=== PATIENT | male | born 1965 | race Caucasian/White ===

== ENCOUNTER 2023-05-17 11:24 | Emergency (ER) | payer MEDICAID, SELFPAY ==
[2023-05-17 11:32] VITALS: BP 158/89; PULSE 79; RESP 18; TEMP 36.9; O2SAT 94; BMI 29.0
--- NOTE | 2023-05-17 11:37 | ED_ITS ---
HPI - General Adult General Chief complaint: General Medical Stated complaint: Lump on ride neck-painful Time Seen by Provider: 05/17/23 12:49 Source: patient and it instructor Mode of arrival: ambulatory Limitations: language barrier History of Present Illness HPI narrative: 58 yo male with history of DM, HTN, HLD, former smoker here with complaints of subjective fevers, cough, sore throat, and right sided facial swelling x 2 days. NO difficulty swallowing/diff breathing/chest pain/sob/skin rash/neck pain or neck stiffness. NO recent travel or sick contact. Related Data Previous Rx's Medication Instructions Recorded amoxicillin 875 mg-potassium 1 tab PO BID #14 tabs 05/17/23 clavulanate 125 mg tablet Allergies Allergy/AdvReac Type Severity Reaction Status Date / Time No Known Allergies Allergy Verified 05/17/23 11:31 Review of Systems 2 Review of Systems: Yes all other systems are reviewed and are negative Constitutional: Constitutional: Reports no additional constitutional complaints, Denies body ache(s), Denies chills, Reports fever(s), Denies headache(s) and Denies weakness Eyes: Eyes: Reports no additional eye complaints and Denies change in vision ENT: Reports system reviewed and no additional complaints, except as documented, Denies dizziness, Denies headache(s), Denies nasal congestion, Denies nasal discharge, Denies neck pain and Reports sore throat Cardiovascular: Cardiovascular: Reports no additional cardiovascular complaints, Denies chest pain, Denies leg edema and Denies dyspnea Respiratory: Respiratory: Reports no additional respiratory complaints, Reports cough and Denies dyspnea Gastrointestinal: Gastrointestinal: Reports no additional gastrointestinal complaints, Denies abdominal pain, Denies diarrhea, Denies nausea and Denies vomiting Genitourinary: Genitourinary: Denies urinary incontinence Musculoskeletal: Musculoskeletal: Reports no additional musculoskeletal complaints, Denies back pain, Denies arthralgias, Denies joint swelling, Denies neck pain, Denies numbness and Denies tingling Integumentary/Breasts: Skin/Breast: Reports system reviewed and no additional complaints, except as docu and Denies rash Neurologic: Reports system reviewed and no additional complaints, except as documented, Denies Abnormal speech present, Denies dizziness, Denies headache(s), Denies numbness, Denies tingling and Denies weakness [facility] Past Medical History Attestation statement: The following information was validated with the patient. Source: old records reviewed and nursing notes reviewed Social History Social History Advance Directives: No Advance Directives Information Provided: Yes Physical Exam ED Vital Signs: Vital Signs - 24 hr 05/17/23 11:32 Temperature 98.5 F Pulse Rate 79 Respiratory Rate 18 Blood Pressure 158/89 H Pulse Oximetry 94 Oxygen Delivery Method Room Air BMI result Body Mass Index 29.0 Const General: cooperative, healthy appearing, comfortable and no acute distress Orientation/consciousness: patient oriented x3 Limitations: no limitations HENMT Head: Yes normal to inspection Ears: hearing grossly normal bilaterally and TM's normal bilaterally General nose exam: Normal external nose present Face and sinus: Yes normal facial exam Face images: 2 1. +single lymph jjzb-rfpsqufyargvi-toll tenderness, mobile Mouth: Normal oral and palatal mucosa present Throat: Yes posterior oropharynx normal, Yes tonsils normal and Yes uvula midline Eyes General: appearance normal, both eyes and all related structures Pupils: Equal, round and reactive pupils present Neck Neck: Yes normal visual inspection, Yes full ROM and Yes no meningeal signs Chest Chest palpation & inspection: normal inspection of the chest Resp Effort & Inspection: normal respiratory effort Auscultation: clear to auscultation bilaterally Cardio Rate: regular rate Rhythm: regular rhythm Peripheral pulses: Peripheral pulses 2+ throughout GI Inspection: Yes normal to inspection Palpation (GI): Soft to palpation and nontender Auscultation: normal bowel sounds Back/Spine/Pelvis Thoracic/Lumbar Spine: thoracic and lumbar spine normal to inspection Skin General skin exam: no rashes or lesions noted Neuro General: patient oriented x3, no meningeal signs, no focal motor deficits and normal sensation to monofilament Cranial nerves: Yes Equal, round and reactive pupils present Cognition (Neuro): normal cognition Speech: No Abnormal speech present Gait exam (Neuro): Normal gait present Motor exam (neuro): 5/5 motor strength present throughout Extrem General: Yes normal to inspection Course Course Course Narrative: RME: 58 [facility], and slight lump on right neck for the past 3 days. patient states no drooling, choking, dental pain, nausea, vomitting, night sweats, or weight loss. physical exam negative for obvious swelling of face or neck. positive for slight right tender lymphadenopathy. covid, influenza, and strep ordered. Reevaluation(s) Reevaluation #1: Viral testing and strep testing are negative. Patient does have some lymphadenopathy so will treat him with a course of antibiotics. I did recommend due to his smoking history that he follow-up with his primary care doctor closely if he has any continued lymphadenopathy he may need advanced imaging and/or lymph node biopsy. Reviewed worrisome signs and symptoms of when to return to the emergency room. Comfortable plan for discharge home. Medical Decision Making Medical Decision Making [facility] Narrative: 58 yo male with history of DM, HTN, HLD, former smoker here with complaints of subjective fevers, cough, sore throat, and right sided facial swelling x 2 days. NO difficulty swallowing/diff breathing/chest pain/sob/skin rash/neck pain or neck stiffness. NO recent travel or sick contact. On exam patient with single lymph node palpated-submandibular right. Exam otherwise benign. Will send testing for strep, flu/covid/rsv Differential Diagnosis Differential Diagnoses: The differential diagnosis associated with the presentation includes lymphadenopathy viral syndrome strep pharyngitis Not c/w with ludwigs angina, DAY CARE SUPERVISOR/RPA, parotitis low suspicion of malignancy with acute onset Admission/Observation Consideration of admission/observation: Escalation of care including admission/observation considered low concern for differential above requiring advanced imaging, urgent ENT consultation and or admission Lab Data [facility] Lab Attestation statement: I reviewed the patient's lab results. Labs: Lab Results 05/17/23 Range/Units 12:53 Influenza Type A (PCR) NEGATIVE (Negative) Influenza Type B (PCR) NEGATIVE (Negative) RSV RNA Qual (PCR) NEGATIVE (Negative) SARS-CoV-2 RNA (RT-PCR) NEGATIVE (Negative) S. pyogenes GrpA NONA Negative (Negative) Tests considered The following testing was considered but not selected: low concern for differential above requiring advanced imaging Prescription Management I considered prescription management with: Antibiotic Discharge Plan Discharge Clinical Impression: Lymphadenopathy Patient Disposition: Home, Self-Care Instructions: Lymphadenopathy (ED) Additional Instructions: Your testing for flu, covid, rsv are negative Your testing for strep and negative You have a swollen lymph node and we are starting you on an antibiotic. If this does not improve with antibiotics you may need advanced imaging and/or biopsy. It is very important that you follow up with your doctor in regards to this. Keshia galindo de gripe, covid y rsv son negativas Tus pruebas de estreptococos y negativas Tiene un ganglio linf?ioana inflamado y le estamos iniciando un tratamiento con antibi?ticos. Si esto no mejora con antibi?ticos, es posible que necesite im?genes avanzadas y/o abdias biopsia. Es muy importante que veronica un seguimiento con branch m?dico al respecto. Prescriptions: New amoxicillin-pot clavulanate 875-125 mg tablet 1 tab PO BID Qty: 14 0RF Referrals: Physician,Unknown J [Primary Care Provider] - 1 week Discharge Date/Time: 05/17/23 14:59 Print Language: Malay
[2023-05-17 13:13] LABS: IDNOW Serial# 08D9AD1C; Strep A Nucleic Acid Negative (Negative)
[2023-05-17 13:37] LABS: Influenza A PCR NEGATIVE (Negative); Influenza B PCR NEGATIVE (Negative); Resp Syncy Virus RNA Qual PCR NEGATIVE (Negative); SARS COV2 PCR INHOUSE NEGATIVE (Negative)
== END 2023-05-17 14:59 | disposition home or self-care (01) ==
PROVIDERS: Nurse Practitioner Family; Physician Assistant; Emergency Provider Emergency Medicine
DX: R59.1 Generalized enlarged lymph nodes (principal); R50.9 Fever, unspecified; R05.9 Cough, unspecified; J02.9 Acute pharyngitis, unspecified; I10 Essential (primary) hypertension; E11.9 Type 2 diabetes mellitus without complications; E78.5 Hyperlipidemia, unspecified; Z20.822 Contact with and (suspected) exposure to COVID-19; Z20.828 Contact with and (suspected) exposure to other viral communicable diseases
CPT/HCPCS: 0241U; 87651; 99283

== ENCOUNTER 2023-07-26 13:18 | Emergency (ER) | payer MEDICAID, SELFPAY ==
[2023-07-26 13:49] VITALS: BP 126/76; PULSE 88; RESP 18; TEMP 36.4; O2SAT 95; BMI 32.3
--- NOTE | 2023-07-26 13:59 | ED.GENADULT ---
HPI - General Adult General Chief complaint: Extremity Injury, Lower Stated complaint: Toe pain L foot Time Seen by Provider: 07/26/23 13:59 Source: patient Mode of arrival: ambulatory Limitations: no limitations History of Present Illness HPI narrative: 58 yold male with pmh of DM and left plantar fascitis presents to the ED for left heel pain for 1 weeks. Patient usually gets corticosteroid injections in the left heel pain but it has been awhile. Patient denies any new trauma, redness, swelling, bluish black discoloration, open open wounds, pus discharge, foul odor, fever, chills, hotness, coldness, or any calf pain. Related Data Previous Rx's Medication Instructions Recorded amoxicillin 875 mg-potassium 1 tab PO BID #14 tabs 05/17/23 clavulanate 125 mg tablet ketorolac 10 mg tablet 10 mg PO Q6H PRN pain 5 days #20 07/26/23 tabs prednisone 20 mg tablet 60 mg (3 x 20 mg) PO DAILY 5 days 07/26/23 #15 tabs Allergies Allergy/AdvReac Type Severity Reaction Status Date / Time No Known Allergies Allergy Verified 07/26/23 13:49 Review of Systems Review of Systems: Left heel pain Yes all other systems are reviewed and are negative [facility] Social History Social History Advance Directives: No Advance Directives Information Provided: Yes Physical Exam ED Vital Signs: Vital Signs - 24 hr 07/26/23 13:49 Temperature 97.5 F Pulse Rate 88 Respiratory Rate 18 Blood Pressure 126/76 Pulse Oximetry 95 Oxygen Delivery Method Room Air BMI result Body Mass Index 32.3 Const General: cooperative, healthy appearing, comfortable, no acute distress, well developed, alert, awake and Physically active Orientation/consciousness: oriented to person, oriented to place, oriented to time and patient oriented x3 HENMT Head: Yes normal to inspection, Yes No palpable skull fracture present, Yes normocephalic, Yes atraumatic and No abrasion Ears: hearing grossly normal bilaterally, external ears normal, TM's normal bilaterally, TM normal on the right and TM normal on the left Throat: Yes posterior oropharynx normal, Yes tonsils normal and Yes uvula midline Eyes General: appearance normal, both eyes and all related structures Neck Neck: Yes normal visual inspection, Yes full ROM, Yes no lymphadenopathy, Yes no meningeal signs, Yes trachea midline, Yes supple, No anterior neck swelling and No tender Chest Chest palpation & inspection: normal inspection of the chest and normal palpation of entire chest wall Resp Effort & Inspection: normal respiratory effort and able to speak in complete sentences Auscultation: clear to auscultation bilaterally Cardio Jugular venous distension: no JVD Heart sounds: S1 normal heart sound present and S2 normal heart sound present GI Inspection: Yes normal to inspection Palpation (GI): Soft to palpation, not firm, nontender and no guarding General: No CVA tenderness and Yes no CVA tenderness Back/Spine/Pelvis Back: no CVA tenderness, No CVA tenderness and No back tenderness Skin General skin exam: no rashes or lesions noted, elasticity normal and turgor normal Neuro General: oriented to person, oriented to place, oriented to time, patient oriented x3, gait normal, tone normal, moves all extremities, Normal light touch and pain sensation, no meningeal signs, no focal motor deficits, CN's II-XI intact bilaterally and normal sensation to monofilament Extrem General: Yes normal to inspection and Yes full ROM Ankle/foot/toe images: 1. tenderness on palpation. Negative for any erythema, swelling, open wounds, pus discharge, foul odor, calf pain, bluish black discoloration, or crepitus. Motor/neuro/ vascular exam intact of whole extremity. Negative for calf pain Psych Appearance: grossly normal, well kempt and not disheveled Course Course Course Narrative: RME: 58 yold male with pmh of DM and plantar fascitits presents to the ED for left heel pain. Patient usually gets Cordis steroid injection to his foot for plantar fasciitis. Patient denies any trauma to the foot, swelling, redness, pus discharge, foul odor. Medications Administered Discontinued Medications Generic Name Dose Route Start Last Admin Trade Name Freq PRN Reason Stop Dose Admin Ketorolac Tromethamine 30 mg 07/26/23 13:59 07/26/23 14:08 Ketorolac Tromethamine 30 Mg/Ml Vial IM 07/26/23 14:00 30 mg ONCE ONE Administration Medical Decision Making Medical Decision Making [facility] Narrative: 58-year-old male history of diabetes and left plantar fasciitis presents to ED for left heel pain for one week. no need for any imaging. Patient denies any new trauma. Physical exam and history does not indicate DVT, cellulitis, compartment syndrome, arterial occlusion, diabetic foot, fracture, or arterial occlusion. History physical exam indicate plantar fasciitis. Discharged with pain meds and steroids Differential Diagnosis Differential Diagnoses: The differential diagnosis associated with the presentation includes ( plantar fasciitis, heel s) Admission/Observation Consideration of admission/observation: Escalation of care including admission/observation considered Independent Historian Clinical information obtained from an independent historian. History obtained from or confirmed by: Other ( patient) External Record Review External record reviewed: Other ( prior visit) Prescription Management I considered prescription management with: Pain Medication Discharge Plan Discharge Clinical Impression: Plantar fasciitis of left foot Patient Disposition: Home, Self-Care Instructions: Plantar Fasciitis (ED), Plantar Fasciitis Exercises (ED) Additional Instructions: Recomiende un seguimiento con branch proveedor de atenci?n primaria para abdias reevaluaci?n de la fascitis plantar y turner si necesita abdias inyecci?n de corticosteroides en el pie. Regrese al servicio de urgencias inmediatamente si presenta hinchaz?n, enrojecimiento, heridas abiertas, secreci?n de pus, mal olor, dolor en la pantorrilla, dolor en el pecho, dificultad para respirar, decoloraci?n anna azulada, calor en las extremidades, fr?o, par?lisis, debilidad, entumecimiento, hormigueo o cualquier otros s?ntomas preocupantes. Recommend follow-up with your primary care provider for re-evaluation of the plantar fasciitis to see if you need a corticosteroid injection to your foot. Return to the ED immediately for any swelling, redness, open wounds, pus discharge, foul odor, calf pain, chest pain, shortness of breath, bluish black discoloration, hotness of extremity, coldness, paralysis, weakness, numbness, tingling, or any other concerning symptoms. Prescriptions: New prednisone 20 mg tablet 60 mg PO DAILY 5 Days Qty: 15 0RF ketorolac 10 mg tablet 10 mg PO Q6H PRN (Reason: pain) 5 Days Qty: 20 0RF Rx Instructions: received 30gm IM toradol in the ED. No Action amoxicillin-pot clavulanate 875-125 mg tablet 1 tab PO BID Qty: 14 0RF Interventions: ED Discharge Assessment Last Done: 07/26/23 14:11 Discharge Date/Time: 07/26/23 14:15 Print Language: Bulgarian
[2023-07-26] MEDS: Ketorolac Tromethamine 30 MG/ML VIAL IM (14:08)
--- NOTE | 2023-07-26 14:11 | PC.NURSE ---
pt medicated per MAJO, left deltoid, tolerated well.
== END 2023-07-26 14:15 | disposition home or self-care (01) ==
PROVIDERS: Emergency Provider Emergency Medicine Emergency Medical Services
DX: M72.2 Plantar fascial fibromatosis (principal); M79.672 Pain in left foot; E11.9 Type 2 diabetes mellitus without complications
CPT/HCPCS: 96372; 99283; 99284; J1885

== ENCOUNTER 2023-08-26 16:47 | Emergency (ER) | payer MEDICARE, MEDICAID, SELFPAY ==
--- NOTE | ~2023-08-26 | XR_ITS ---
EXAMINATION: XR FOOT, LEFT CLINICAL INFORMATION: Foot pain. Heel pain. COMPARISON: None available. TECHNIQUE: AP, lateral, and oblique views of the left foot. FINDINGS: Status post amputation of the great toe through the distal shaft of the proximal phalange. No acute osseous abnormality. No fracture. No dislocation. No bone destruction or abnormal periosteal reaction. Mild joint narrowing DIP joints of the toes. No plantar calcaneal heel spur. XR/XR foot LT min 3V IMPRESSION: 1. Status post amputation of the great toe. 2. No acute osseous abnormality. 3. No plantar calcaneal heel spur.
[2023-08-26 17:05] VITALS: BP 100/64; PULSE 93; RESP 16; TEMP 36.6; O2SAT 98; BMI 31.6
--- NOTE | 2023-08-26 17:07 | ED_ITS ---
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 He reports that he has a diabetic with denies any trauma or injury. The patient has a remote history of a left great toe amputation in [place] due to an infection He was seen here 1 month ago for similar pain to the bottom of his left foot. He reports he was diagnosed with plantar fasciitis Denies any fevers, chills, redness, swelling His pain is worse with attempting to ambulate Related Data Previous Rx's Medication Instructions Recorded amoxicillin 875 mg-potassium 1 tab PO BID #14 tabs 05/17/23 clavulanate 125 mg tablet ketorolac 10 mg tablet 10 mg PO Q6H PRN pain 5 days #20 07/26/23 tabs prednisone 20 mg tablet 60 mg (3 x 20 mg) PO DAILY 5 days 07/26/23 #15 tabs tramadol 50 mg tablet 50 mg PO TID PRN severe pain 08/26/23 (scale score 7-10) #15 tabs Allergies Allergy/AdvReac Type Severity Reaction Status Date / Time No Known Allergies Allergy Verified 07/26/23 13:49 Review of Systems Constitutional: Constitutional: Denies chills and Denies fever(s) Musculoskeletal: Musculoskeletal: Reports arthralgias Integumentary/Breasts: Skin/Breast: Denies erythema and Denies wounds PMFSH Social History Social History Advance Directives: No Advance Directives Information Provided: No Physical Exam Vital Signs: Vital Signs: Last Vital Signs Temp 97.6 F 08/26/23 23:16 Pulse 88 08/26/23 23:16 Resp 16 08/26/23 23:16 BP 116/74 08/26/23 23:16 Pulse Ox 96 08/26/23 23:16 O2 Del Method Room Air 08/26/23 23:16 BMI result Body Mass Index 31.6 Const: General: healthy appearing, comfortable, no acute distress, alert and awake Nutritional Appearance: well nourished Orientation/consciousness: patient oriented x3 HEENT: Head: Yes normocephalic and Yes atraumatic Eyes: Eyelids: Yes eyelids normal Conjunctivae: conjunctivae normal Sclerae: sclerae normal Corneas: corneas normal Pupils: Equal, round and reactive pupils present EOM: EOMs intact bilaterally Resp: Effort & Inspection: normal respiratory effort, able to speak in complete sentences and not labored GI: Inspection: No distended Palpation (GI): Soft to palpation, not firm, nontender, no guarding and not rigid Skin: General skin exam: no rashes or lesions noted and elasticity normal Neuro: General: patient oriented x3 Cranial nerves: Yes Equal, round and reactive pupils present and Yes Bilaterally intact EOM present Cognition (Neuro): normal cognition Extrem: Other: Left great toe amputation. Tenderness to the left plantar fascia extending towards the left calcaneus. No overlying skin changes, wounds or bony abnormalities Course Course Course Narrative: Patient complains of left foot pain in the heel and the lateral aspect of the foot near the heel for several months He was seen here 1 month ago and told it was likely plantar fasciitis This is rapid medical exam done in triage pending full evaluation and dispo by ER provider X-ray ordered Medical Decision Making Medical Decision Making MDM Narrative: 58-year-old male presents for evaluation of left foot pain. He has no edema, no rashes or wounds to suggest infectious process. Patient's history exam is consistent with plantar fasciitis. X-ray shows no bony abnormalities. Patient will be treated symptomatically and discharged to follow-up with podiatry Differential Diagnosis Differential Diagnoses: The differential diagnosis associated with the presentation includes Plantar fasciitis Cellulitis Left foot pain Gout Independent Interpretation I performed an independent interpretation of an: Plain X-Ray (No bony abnormalities) Radiology Impression Discussion of test interpretation with radiology: I have reviewed the radiologist's reading. (Status post amputation of the great toe. No acute osseous abnormality. No plantar calcaneal heel spur) Discharge Plan Discharge Clinical Impression: Plantar fasciitis of left foot Patient Disposition: Home, Self-Care Instructions: Plantar Fasciitis (ED), Plantar Fasciitis Exercises (ED) Additional Instructions: You need to follow-up with podiatry for your plantar fasciitis. Use ibuprofen/Tylenol for pain. Use tramadol for more severe breakthrough pain. This may make you sleepy, did not drink alcohol or drive after taking it Return for new or worsening symptoms Prescriptions: New tramadol 50 mg tablet 50 mg PO TID PRN (Reason: severe pain (scale score 7-10)) Qty: 15 0RF No Action amoxicillin-pot clavulanate 875-125 mg tablet 1 tab PO BID Qty: 14 0RF prednisone 20 mg tablet 60 mg PO DAILY 5 Days Qty: 15 0RF ketorolac 10 mg tablet 10 mg PO Q6H PRN (Reason: pain) 5 Days Qty: 20 0RF Rx Instructions: received 30gm IM toradol in the ED. Referrals: Shun Vang MD [Physician] - (plantar fasciitis)
[2023-08-26 19:53] VITALS: BP 106/68; PULSE 68; RESP 14; TEMP 36.6; O2SAT 96
[2023-08-26 23:16] VITALS: BP 116/74; PULSE 88; RESP 16; TEMP 36.4; O2SAT 96
[2023-08-27] MEDS: Ketorolac Tromethamine 30 MG/ML VIAL IM
== END 2023-08-27 00:04 | disposition home or self-care (01) ==
PROVIDERS: Emergency Provider Internal Medicine
DX: M72.2 Plantar fascial fibromatosis (principal); M79.672 Pain in left foot
CPT/HCPCS: 73630; 96372; 99283; 99284; J1885

== ENCOUNTER 2023-09-30 12:56 | Emergency (ER) | payer MEDICARE, MEDICAID, SELFPAY ==
--- NOTE | ~2023-09-30 | CT_ITS ---
EXAMINATION: CT SOFT TISSUE NECK WITH CONTRAST CLINICAL INFORMATION: Right neck swelling COMPARISON: None. TECHNIQUE: Following the administration of 60 mL of Omnipaque 350 intravenous contrast, helical imaging was performed in the axial plane with generation of coronal and sagittal reformatted images. This CT examination was performed using dose optimization techniques as appropriate, variously including the following: *Automated exposure control. *Adjustment of mA and/or kV according to patient size (this includes techniques or standardized protocols for targeted exams where dose is matched to indication/reason for exam; i.e. extremities or head). *Use of iterative reconstruction technique. DLP: 1624 mGy-cm. FINDINGS: A marker is noted overlying the lower aspect of the right submandibular triangle denoting the site of clinical concern. Suggestion of increased density in the lower pole of the right submandibular gland relative to the left, which may reflect asymmetric glandular tissue however underlying lesion is not excluded and would be better diagnostically assessed on targeted soft tissue ultrasound. Query slight overlying thickening of the right platysma muscle. No significant periglandular fat stranding or sialectasis. Two adjacent punctate hyperdensities along the right anterior floor of mouth spanning 3 mm likely reflective of calculi within the distal most aspect of Doddridge's duct near the papilla. Trace paranasal sinus mucosal thickening. The temporomandibular joints are normal. Edentulous maxillary alveolus. Symmetric prominence of the palatine tonsils for age and moderate volume adenoidal tonsillar hyperplasia, presumably reactive. The remainder of the pharyngeal mucosal space and larynx are normal. The left submandibular and parotid glands are normal. The thyroid gland is normal. Single enlarged right level 2A lymph node measuring 1.6 cm in long axis without otherwise morphologically suspicious features, otherwise mild scattered nonpathologic size criteria cervical chain lymph nodes. Partially imaged paraseptal emphysema. Normal opacification of the major neck vessels. Cervical spondylosis contributes to apparent multilevel moderate spinal canal and varying degrees of neural foraminal narrowing. The imaged portions of the brain parenchyma are unremarkable. Patchy calcific plaque along the carotid siphons. CT/CT soft tissue neck w IV con IMPRESSION: 1. Two adjacent punctate hyperdensities along the right anterior floor of mouth spanning 3 mm likely reflective of calculi within the distal most aspect of Remberto's duct near the papilla. No evidence of acute or chronic sialoadenitis, noting suggestion of increased density in the lower pole of the right submandibular gland relative to the left, which may reflect asymmetric glandular tissue however underlying lesion is not excluded and would be better diagnostically assessed on targeted soft tissue ultrasound. 2. Single enlarged right level 2A lymph node measuring 1.6 cm in long axis without otherwise morphologically suspicious features
--- NOTE | ~2023-09-30 | CT_ITS ---
EXAMINATION: CT HEAD WITHOUT CONTRAST CLINICAL INFORMATION: Posterior headache COMPARISON: None available. TECHNIQUE: Contiguous axial imaging was performed from the skull base to vertex without intravenous administration of contrast. This CT examination was performed using dose optimization techniques as appropriate, variously including the following: *Automated exposure control *Adjustment of mA and/or kV according to patient size (this includes techniques or standardized protocols for targeted exams where dose is matched to indication/reason for exam; i.e. extremities or head) *Use of iterative reconstruction technique DLP: 768 mGy-cm FINDINGS: The ventricles and sulci are normal in size and configuration. No acute hemorrhage, mass effect or shift is evident. Fowler-white differentiation is maintained. In the posterior fossa, the brainstem, cerebellum and fourth ventricle image normally. The orbits and calvarium are intact. The paranasal sinuses and mastoid air cells are well pneumatized and clear. CT/CT head/brain wo IV con IMPRESSION: 1. Unremarkable noncontrast brain CT. No acute hemorrhage, mass effect or shift.
[2023-09-30 13:15] VITALS: BP 142/84; PULSE 91; RESP 18; TEMP 36.3; O2SAT 96; BMI 31.6
--- NOTE | 2023-09-30 13:16 | ED_ITS ---
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 Apparently he reported positive sore throat, cough, fevers, chills did nursing staff during triage The patient does admit to sore throat and right-sided neck swelling for the last couple of months Denies any recent travel or sick contacts He has not on blood thinners or aspirin He reports his headache is constant, 11/22 and the Related Data Previous Rx's ?Medication ?Instructions ?Recorded amoxicillin 875 mg-potassium 1 tab PO BID #14 tabs 05/17/23 clavulanate 125 mg tablet ketorolac 10 mg tablet 10 mg PO Q6H PRN pain 5 days #20 07/26/23 tabs prednisone 20 mg tablet 60 mg (3 x 20 mg) PO DAILY 5 days 07/26/23 #15 tabs naproxen 500 mg tablet 500 mg PO Q8-12H PRN pain (scale 08/27/23 score 4-6) #14 tabs Allergies Allergy/AdvReac Type Severity Reaction Status Date / Time No Known Allergies Allergy Verified 09/30/23 13:18 Review of Systems 2 Constitutional: Constitutional: Denies body ache(s), Denies chills, Denies fever(s) and Reports headache(s) ENT: Reports headache(s), Reports sore throat and Reports throat swelling Cardiovascular: Cardiovascular: Denies chest pain and Denies dyspnea Respiratory: Respiratory: Reports cough and Denies dyspnea Gastrointestinal: Gastrointestinal: Denies abdominal pain, Denies nausea and Denies vomiting Genitourinary: Genitourinary: Denies dysuria Musculoskeletal: Musculoskeletal: Denies back pain Integumentary/Breasts: Skin/Breast: Denies rash Neurologic: Denies Abnormal speech present and Reports headache(s) Allergic/Immunologic: Allergic/Immunologic: Reports throat swelling PMFSH Social History Social History Advance Directives: No Advance Directives Information Provided: No Physical Exam ED Vital Signs: Vital Signs - 24 hr 09/30/23 13:15 09/30/23 17:07 09/30/23 18:27 Temperature 97.3 F 97.9 F 98 F Pulse Rate 91 89 91 Respiratory Rate 18 16 16 Blood Pressure 142/84 H 131/91 H 130/82 Pulse Oximetry 96 96 95 Oxygen Delivery Method Room Air Room Air Room Air 09/30/23 21:22 Temperature 97.9 F Pulse Rate 73 Respiratory Rate 18 Blood Pressure 101/61 Pulse Oximetry 99 Oxygen Delivery Method Room Air BMI result Body Mass Index 31.6 Const General: healthy appearing, comfortable, no acute distress, alert and awake Nutritional Appearance: well nourished Orientation/consciousness: patient oriented x3 HENMT Head: Yes normocephalic and Yes atraumatic Eyes Eyelids: Yes eyelids normal Conjunctivae: conjunctivae normal Sclerae: sclerae normal Corneas: corneas normal Pupils: Equal, round and reactive pupils present EOM: EOMs intact bilaterally Neck Other: No obvious cervical mass or neck swelling. Neck: Yes full ROM Resp Effort & Inspection: normal respiratory effort, able to speak in complete sentences, no audible wheezes and not labored Auscultation: clear to auscultation bilaterally GI Inspection: No distended Palpation (GI): Soft to palpation, not firm, nontender, no guarding and not rigid Skin General skin exam: elasticity normal Neuro General: patient oriented x3 Cranial nerves: Yes CN's II-XII intact bilaterally, Yes Equal, round and reactive pupils present and Yes Bilaterally intact EOM present Cognition (Neuro): normal cognition Speech: No Abnormal speech present Gait exam (Neuro): Normal gait present Extrem Other: Moving all extremities well without any obvious deformities Course Course Course Narrative: RME:?58 yo male here for eval of subjective fevers, chills, sore throat, headache, dry cough, diaphoresis at night x3 days. no known sick contacts. no recent travel. no known insect bites. labs, viral swabs, strep swab ordered. Full HPI, ROS and PE to be performed by the primary ED provider. Reevaluation(s) Reevaluation #1: Discussed patient's workup with him including CT imaging results. I discussed the salivary glands. The patient reports he has been told this in the past and is supposed to be eating sour can use but he does not. His headache has resolved, he will be discharged to follow-up with his PCP Time: 22:48 Medications Administered Discontinued Medications Generic Name Dose Route Start Last Admin Trade Name Poppy PRN Reason Stop Dose Admin Acetaminophen 975 mg 09/30/23 16:43 09/30/23 17:05 Acetaminophen 325 Mg Tablet PO 09/30/23 16:44 975 mg ONCE ONE Administration Diphenhydramine HCl 25 mg 09/30/23 19:34 09/30/23 19:54 Diphenhydramine Hcl 50 Mg/Ml Vial IVPUSH 09/30/23 19:35 25 mg ONCE ONE Administration Sodium Chloride 1,000 mls @ 999 mls/hr 09/30/23 19:45 09/30/23 19:56 Ns IV 09/30/23 20:45 999 mls/hr .Q1H1M FLOR Administration Iohexol 85 ml 09/30/23 20:29 09/30/23 20:30 Iohexol 350 Mg/Ml 100 Ml Infus..Btl IV 09/30/23 20:30 85 ml ONCE ONE Administration Ketorolac Tromethamine 30 mg 09/30/23 19:34 09/30/23 19:54 Ketorolac Tromethamine 30 Mg/Ml Vial IVPUSH 09/30/23 19:35 30 mg ONCE ONE Administration Metoclopramide HCl 10 mg 09/30/23 19:34 09/30/23 19:54 Metoclopramide Hcl 10 Mg/2 Ml Vial IVPUSH 09/30/23 19:35 10 mg ONCE ONE Administration Medical Decision Making Medical Decision Making [facility] Narrative: 58-year-old male presents for evaluation of a headache. His headache started 3 days ago. He describes it as dull, achy. He has no neck pain or meningeal signs to suggest infectious cause of headache. Plan for CT scan of his brain. Will treat the headache with Reglan, Benadryl, Toradol and IV fluids. However, also concerning is the patient is a smoker and complains of right neck swelling for the last few months. He has no obvious swelling on exam. Plan for CT scan with IV contrast to rule out mass. Patient's labs are reassuring, hematology with no concerning abnormality. Chemistries show a CO2 of 30 which is likely related to smoking history, no other electrolyte abnormalities. Random glucose is elevated to 189 Differential Diagnosis Differential Diagnoses: The differential diagnosis associated with the presentation includes Acute headache Tension headache Cluster headache Migraine headache Viral syndrome Strep pharyngitis Esophageal cancer Lab Data MDM Lab Attestation statement: I reviewed the patient's lab results. See above 09/30/23 13:53 09/30/23 13:53 Labs: Lab Results 09/30/23 Range/Units 13:53 WBC 8.4 (4.8-10.8) X10*3/uL RBC 5.36 (4.60-5.80) X10*6/uL Hgb 16.6 (14.0-18.0) g/dl Hct 51.6 (42.0-52.0) % MCV 96.3 (80.0-98.0) fL MCH 31.0 (27.0-33.0) pg MCHC 32.2 (31.0-36.0) g/dl RDW 13.2 (11.0-16.0) % Plt Count 228 (160-400) X10*3/uL MPV 10.7 (9.4-12.4) fL Immature Gran % (Auto) 0.2 (0.0-0.4) % Neut % (Auto) 54.3 (45-73) % Lymph % (Auto) 33.5 (20-40) % [place] % (Auto) 8.9 (2-11) % Eos % (Auto) 2.4 (0-4) % Baso % (Auto) 0.7 (0-2) % Lymph # (Auto) 2.8 (1.2-4.9) X10*3/uL [place] # (Auto) 0.8 (0.1-1.2) X10*3/uL Eos # (Auto) 0.2 (0.0-0.4) X10*3/uL Baso # (Auto) 0.1 (0.0-0.2) X10*3/uL Abs Immat Gran (auto) 0.02 (0.00-0.03) X10*3/uL Absolute Neuts (auto) 4.6 (2.0-8.3) x10*3/uL Absolute Nucleated RBC 0.000 (0.0-0.012) X10*3/uL Nucleated RBC % (auto) 0.0 (0.0-0.2) /100WBC Sodium 138 (135-145) mmol/L Potassium 4.9 (3.3-5.1) mmol/L Chloride 104 (96-108) mmol/L Carbon Dioxide 30 H (22-29) mmol/L Anion Gap 9 L (12-20) BUN 15 (9-16) mg/dL Creatinine 1.07 (0.5-1.4) mg/dL Estim Creat Clear Calc 86.4 Estimated GFR > 60 Random Glucose 189 H (60-115) mg/dL Calcium 9.7 (8.4-10.2) mg/dL Magnesium 2.0 (1.6-2.6) mg/dL Total Bilirubin 0.3 (0.0-1.0) mg/dL AST 20 (5-37) U/L ALT 27 (0-40) U/L Alkaline Phosphatase 83 (39-117) U/L Total Protein 8.1 H (6.5-8.0) g/dL Albumin 3.9 (3.5-5.0) g/dL Influenza Type A (PCR) NEGATIVE (Negative) Influenza Type B (PCR) NEGATIVE (Negative) RSV RNA Qual (PCR) NEGATIVE (Negative) SARS-CoV-2 RNA (RT-PCR) NEGATIVE (Negative) S. pyogenes GrpA NONA Negative (Negative) Discharge Plan Discharge Clinical Impression: Headache, Salivary calculus Patient Disposition: Home, Self-Care Instructions: Acute Headache (ED), Sialoadenitis (ED) Additional Instructions: Your CT scan did not show any abnormality to contribute to your headaches. The swelling in your neck is likely related to salivary stones Eating sour candies can help improve these symptoms Follow-up with your primary doctor You may use ibuprofen/Tylenol for pain Return for new or worsening symptoms Prescriptions: No Action amoxicillin-pot clavulanate 875-125 mg tablet 1 tab PO BID Qty: 14 0RF naproxen 500 mg tablet 500 mg PO Q8-12H PRN (Reason: pain (scale score 4-6)) Qty: 14 0RF Rx Instructions: Patient tolerated Toradol in ED prednisone 20 mg tablet 60 mg PO DAILY 5 Days Qty: 15 0RF ketorolac 10 mg tablet 10 mg PO Q6H PRN (Reason: pain) 5 Days Qty: 20 0RF Rx Instructions: received 30gm IM toradol in the ED. Print Language: Slovenian
[2023-09-30 13:57] LABS: MANUAL DIFF FLAG NO
[2023-09-30 13:59] LABS: Basophils Absolute Auto 0.1 X10*3/uL (0.0-0.2); Basophils Percent Auto 0.7 % (0-2); Eosinophils Absolute Auto 0.2 X10*3/uL (0.0-0.4); Eosinophils Percent Auto 2.4 % (0-4); Hematocrit 51.6 % (42.0-52.0); Hemoglobin 16.6 g/dl (14.0-18.0); Imm Gran Abs Auto 0.02 X10*3/uL (0.00-0.03); Imm Gran Pct Auto 0.2 % (0.0-0.4); Lymphocytes Absolute Auto 2.8 X10*3/uL (1.2-4.9); Lymphocytes Percent Auto 33.5 % (20-40); Mean Corpuscular HGB Conc 32.2 g/dl (31.0-36.0); Mean Corpuscular Volume 96.3 fL (80.0-98.0); Mean Platelet Volume 10.7 fL (9.4-12.4); Monocytes Absolute Auto 0.8 X10*3/uL (0.1-1.2); Monocytes Percent Auto 8.9 % (2-11); Neutrophils Absolute Auto 4.6 x10*3/uL (2.0-8.3); Neutrophils Percent Auto 54.3 % (45-73); Platelet Count 228 X10*3/uL (160-400); Red Blood Count 5.36 X10*6/uL (4.60-5.80); Red Cell Distribution Width 13.2 % (11.0-16.0); White Blood Count 8.4 X10*3/uL (4.8-10.8)
[2023-09-30 14:14] LABS: IDNOW Serial# 58CA691E; Strep A Nucleic Acid Negative (Negative)
[2023-09-30 14:18] LABS: Alanine Aminotransferase 27 U/L (0-40); Albumin Level 3.9 g/dL (3.5-5.0); Alkaline Phosphatase 83 U/L (39-117); Anion Gap 9 (12-20); Aspartate Amino Transferase 20 U/L (5-37); Bilirubin Total 0.3 mg/dL (0.0-1.0); Blood Urea Nitrogen 15 mg/dL (9-16); Calcium 9.7 mg/dL (8.4-10.2); Carbon Dioxide 30 mmol/L (22-29); Chloride 104 mmol/L (96-108); Creatinine Clr Calc Pharmacy 86.4; Estimated Glomerular Filt Rate > 60; Glucose Random 189 mg/dL (60-115); Potassium 4.9 mmol/L (3.3-5.1); Sodium 138 mmol/L (135-145); Total Protein 8.1 g/dL (6.5-8.0)
[2023-09-30 14:39] LABS: Influenza A PCR NEGATIVE (Negative); Influenza B PCR NEGATIVE (Negative); Resp Syncy Virus RNA Qual PCR NEGATIVE (Negative); SARS COV2 PCR INHOUSE NEGATIVE (Negative)
[2023-09-30] MEDS: Acetaminophen 325 MG TABLET 975 MG PO (17:05)
[2023-09-30 17:07] VITALS: BP 131/91; PULSE 89; RESP 16; TEMP 36.6; O2SAT 96
[2023-09-30 18:27] VITALS: BP 130/82; PULSE 91; RESP 16; TEMP 36.6; O2SAT 95
[2023-09-30] MEDS: Metoclopramide HCl 10 MG/2 ML VIAL IVPUSH (19:54)
[2023-09-30] MEDS: Ketorolac Tromethamine 30 MG/ML VIAL IVPUSH (19:54)
[2023-09-30] MEDS: diphenhydrAMINE HCL 50 MG/ML VIAL 25 MG IVPUSH (19:54)
[2023-09-30] MEDS: 0.9 % Sodium Chloride 1,000 ML 999 ML IV (19:56)
[2023-09-30] MEDS: iohexoL 350 MG/ML 100 ML INFUS..BTL 85 ML IV (20:30)
[2023-09-30 21:22] VITALS: BP 101/61; PULSE 73; RESP 18; TEMP 36.6; O2SAT 99
[2023-09-30 22:54] VITALS: BP 101/61; PULSE 73; RESP 18; TEMP 36.6; O2SAT 99
== END 2023-09-30 22:57 | disposition home or self-care (01) ==
PROVIDERS: Physician Assistant Medical; Emergency Provider Emergency Medicine Emergency Medical Services
DX: K11.5 Sialolithiasis (principal); R51.9 Headache, unspecified; R07.0 Pain in throat; R22.1 Localized swelling, mass and lump, neck; Z03.818 Encounter for observation for suspected exposure to other biological agents ruled out; Z79.899 Other long term (current) drug therapy
CPT/HCPCS: 0241U; 70450; 70491; 80053; 83735; 85025; 87651; 96374; 96375; 99284; J1200; J1885; J2765; Q9967

== ENCOUNTER 2024-06-03 11:51 | Outpatient (REF) | payer MEDICARE, MEDICAID, SELFPAY ==
[2024-06-03 13:07] LABS: Erythrocyte Sedimentation Rate 7 MM/HR (0-15)
[2024-06-03 13:33] LABS: Vitamin B12 787 pg/mL (200-900)
[2024-06-04 04:07] LABS: Syphilis Screen Nonreactive (Nonreactive)
[2024-06-06 17:53] LABS: Lyme Abs Screen <0.90 index
== END 2024-06-03 11:52 | disposition home or self-care (01) ==
LOC: HO.LAB 11:51
PROVIDERS: PCP Internal Medicine; Visit Provider Psychiatry & Neurology Neurology
DX: G93.40 Encephalopathy, unspecified (principal)
CPT/HCPCS: 36415; 82607; 85652; 86617; 86618; 86780